=== PATIENT | male | born 1935 | race Caucasian/White ===

== ENCOUNTER → 2017-09-04 | Day surgery (SDC) | payer MEDICARE ==
[~2017-09-04] MED LIST: ACTOS45 MG PO; FENTANYL CITRATE/PF 100MCG/2 ML INJ ONE; GLIPIZIDE ER5 MG PO; INSULIN REGULAR, HUMAN 100 UNIT/1 ML 3ML VIAL ONE; METFORMIN HCL500 M2 PO; MIDAZOLAM HCL 2 MG/2 ML VIAL ONE; OR PHACO EYE KIT ONE; PREOP PHACO EYE KIT ONE
== END | disposition home or self-care (01) ==
LOC: OR 09:34
PROVIDERS: ATTEND Ophthalmology
DX: H25.11 Age-related nuclear cataract, right eye (principal); E11.9 Type 2 diabetes mellitus without complications; I10 Essential (primary) hypertension; G62.9 Polyneuropathy, unspecified; H91.90 Unspecified hearing loss, unspecified ear; R01.1 Cardiac murmur, unspecified; R05 Cough; Z79.84 Long term (current) use of oral hypoglycemic drugs
CPT/HCPCS: 36415; 66984; 82948; J2250; V2632

== ENCOUNTER → 2017-09-18 | Day surgery (SDC) | payer MEDICARE ==
[~2017-09-18] MED LIST changes: -FENTANYL CITRATE/PF 100MCG/2 ML INJ ONE; -INSULIN REGULAR, HUMAN 100 UNIT/1 ML 3ML VIAL ONE
== END | disposition home or self-care (01) ==
LOC: OR 10:11
PROVIDERS: ATTEND Ophthalmology
DX: H25.12 Age-related nuclear cataract, left eye (principal); I10 Essential (primary) hypertension; E11.9 Type 2 diabetes mellitus without complications; Z79.84 Long term (current) use of oral hypoglycemic drugs
CPT/HCPCS: 36415; 66984; 82948; J2250; V2632

== ENCOUNTER → 2018-12-11 | Day surgery (SDC) | payer MEDICARE ==
--- NOTE | 2018-12-10 14:27 | NUR ---
Dr. Amelie Graves notified of no labs ordered for patient. Dr. Amelie Graves ordered CBC, CMP, and PT/INR.
[2018-12-10 15:27] LABS: BASOPHILS # (AUTO) 0.1 (0.0-0.1); BASOPHILS % 0.5 % (0.0-1.0); EOSINOPHILS # (AUTO) 0.2 (0.0-0.4); EOSINOPHILS % 1.8 % (0.0-6.0); HEMATOCRIT 40.4 % (38.2-49.6); HEMOGLOBIN 13.7 g/dL (14.0-18.0); LYMPHOCYTES % 20.7 % (18.0-39.1); MEAN CORPUSCULAR HEMOGLOBIN 30.9 pg (28-32); MEAN CORPUSCULAR HGB CONC 33.9 g/dL (31-35); MONOCYTES % 9.7 % (4.4-11.3); NEUTROPHILS # (AUTO) 6.5 (2.1-6.9); PLATELET COUNT 222 x10e3/uL (140-360); RED BLOOD COUNT 4.44 x10e6/uL (4.3-5.7)
[2018-12-10 15:37] LABS: INR 1.17; PROTHROMBIN TIME 15.5 seconds (11.9-14.5)
[2018-12-10 15:47] LABS: ALANINE AMINOTRANSFERASE 8 IU/L (0-55); ALBUMIN/GLOBULIN RATIO 1.2 (0.8-2.0); ALKALINE PHOSPHATASE 53 IU/L (40-150); ANION GAP 12.1 mmol/L (8-16); BLOOD UREA NITROGEN 14 mg/dL (7-26); BUN/CREATININE RATIO 17 (6-25); CARBON DIOXIDE 27 mmol/L (22-29); CHLORIDE 97 mmol/L (98-107); CREATININE, SERUM 0.82 mg/dL (0.72-1.25); EST GLOMERULAR FILTRATION RATE > 60 ML/MIN (60-); GLUCOSE 161 mg/dL (74-118); POTASSIUM 4.1 mmol/L (3.5-5.1); SODIUM 132 mmol/L (136-145)
--- NOTE | 2018-12-10 16:07 | NUR ---
Dr. Amelie Graves notified of PT 15.5 and aspirin 81 mg po daily. no new orders at this time
[2018-12-11] VITALS (10 sets, daily range): BP systolic 144–175; BP diastolic 61–88
[~2018-12-11] VITALS: Ht 177.8 cm; Wt 88.5 kg
[~2018-12-11] MED LIST changes: +ASPIR 8181 MG PO; +BERBERINE PO; +CALCIUM PO; +CINNAMON500 MG PO; +COQ-10100 MG PO; +FENTANYL CITRATE/PF 100MCG/2 ML INJ ONE; +HYDRALAZINE HCL 20 MG/ML VIAL ONE; +IOPAMIDOL 370 MG/ML 200 ML INFUS..BTL INJ ONE; +LIDOCAINE HCL 2% LOCAL 20 ML VIAL ONE; +MAGNESIUM PO; +OMEGA 3 FISH O1 EACH PO; -OR PHACO EYE KIT ONE; -PREOP PHACO EYE KIT ONE; +PRESERVISION T1 EACH PO; +RED YEAST RICE600 MG PO; +SODIUM CHLORIDE 0.9% 1000ML 2,000 ML ONE; +THROAT DROPS6 MG PO; +TURMERIC1 GM PO; +VERAPAMIL HCL 2.5 MG/ML 2 ML VIAL ONE; +VITAMIN B COMP1 EACH PO; +VITAMIN B5 PO
--- OUTSIDE RECORDS SUMMARY | 2018-12-11 07:29 | XMS REPORT ---
Author Author [facility] Address Unknown Phone Unavailable Care Team Providers Care Component Inspector Name Role Phone Unavailable Unavailable Problems This patient has no known problems. Allergies, Adverse Reactions, Alerts This patient has no known allergies or adverse reactions. Medications This patient has no known medications.
--- NOTE | 2018-12-11 12:16 | NUR ---
1216 bedside report received from Teja CHATMAN. Alert oriented and appropriate, PERRLA, respirations even and unlabored to room air. Pulses x4 extremities equal and strong. Pedal pulses PT/DP 4 Cap fill brisk < 3 sec. Rt wrist Tr band intact No gross issues pain,pallor,pressure or dysrhythmia. Skin warm and dry integrity appears D/I. IV 20g to left hand at 100cchr. Presents healthy w/o s/s of infiltration or complaint. Abdomen soft and supple. pt offered toileting, denies need to urinate or defecate. No personal affects with patient. Family [place] [phone]. Pt and family verbalize understanding POC. Currently w/o complaint of pain or need. Hob elevated offered po intake spoke with pt and family. Dc plans discussed for f/o Dr Graves office in 2wks. vladimir/rn
--- NOTE | 2018-12-11 13:15 | NUR ---
1315pm RADIAL Compression removal: Initial Cuff volume 13 cc 1315p -2cc Removed No hematoma/bleeding noted with normal neurovascular function. 1330p -2cc Removed No hematoma/ bleeding noted with normal neurovascular function. 1345p -2cc Removed No hematoma/bleeding noted with normal neurovascular function. 1400p -2cc Removed No hematoma/ bleeding noted with normal neurovascular function. Air removal completed. 1415pm Stasis achieved sterile 2x2,Tegaderm, Coban dressing No hematoma, bleeding noted with normal neurovascular function. Wrist splint in place. Pt instructed on POC. Ds/Rn
--- NOTE | 2018-12-11 14:30 | NUR ---
1430 Pt meets DC criteria. Rt TR band site assessed for s/s of complication and presence of hematoma. warm, dry, no discolor, and pulses present. IV removed from left hand. Distal tip appears intact. VS WNL. Pt denies pain, sob, or need at this time. Family at [facility] at bedside review of discharge paperwork and follow up instructions. verbalized understanding. Pt to wheelchair and transported to front of hospital. Transferred to private vehicle under own strength w/o incident with DC paperwork in hand. - ds/rn
--- NOTE | 2019-01-24 19:54 | Operative Report ---
DATE OF PROCEDURE: 12/11/2018 SURGEON: Enrique Graves MD INDICATION FOR PROCEDURE: [id number] aortic stenosis, coronary artery disease, and carotid stenosis. PREPROCEDURE ASSESSMENT: The risks, benefits, and alternatives to the treatment were explained to the patient prior to the procedure. The patient was deemed to be an appropriate candidate for moderate sedation. Informed consent was obtained and documented in the medical record. MEDICATIONS: Please see nursing notes for medications administered during the procedure. PROCEDURES PERFORMED: 1. Coronary angiography, right radial approach. 2. Carotid angiography, right radial approach. PROCEDURE DETAILS: The patient was brought to the cardiac catheterization laboratory in a fasting state. Right wrist was prepped and draped in a sterile fashion. Access to the right radial artery was obtained using modified Seldinger technique. A 6-[place] Slender sheath was inserted without any difficulty. Coronary angiography was performed using Delia radial catheter to engage both the left and right coronary systems. Carotid angiography was performed using a JR4 catheter. Multiple orthogonal views were taken of each artery. All catheters were removed over a wire. There were no immediate complications. SIGNIFICANT FINDINGS: Left main large caliber vessel with luminal irregularities only. LAD, large caliber vessel goes to the apex, one significant diagonal branch. There is long tubular 40% to 50% stenosis in the proximal LAD with calcification. Left circumflex large dominant, left circumflex, one very large OM branch, and distal PDA and PL branches. Luminal irregularities only. No obstructive CAD. Small nondominant RCA with diffuse disease in the midportion about 80% to 90%. Carotid angiography: 80% stenosis of the left internal carotid artery and 40% stenosis of the right internal carotid artery, otherwise no significant disease in the left or right common carotid arteries or external carotid arteries. GRAFTS AND IMPLANTS: None. SPECIMENS REMOVED: None. ESTIMATED BLOOD LOSS: 10 mL. FINAL RECOMMENDATIONS: 1. Continue optimal medical therapy and risk factor control. 2. Follow up in clinic 2 weeks post procedure. Enrique Graves MD KVP/MODL /[id number]
== END | disposition home or self-care (01) ==
LOC: CATH LAB 07:26
PROVIDERS: ATTEND Internal Medicine
DX: I25.10 Atherosclerotic heart disease of native coronary artery without angina pectoris (principal); I35.0 Nonrheumatic aortic (valve) stenosis; I73.9 Peripheral vascular disease, unspecified; Z01.812 Encounter for preprocedural laboratory examination
CPT/HCPCS: 36222; 36415; 80053; 85025; 85610; 93454; C1769; C1887; J0360; J2001; J2250; J3010; J7030; Q9967

== ENCOUNTER 2020-05-09 16:56 | Inpatient (IN) | payer MEDICARE, OTHER ==
[~2020-05-09] VITALS: Ht 180.3 cm; Wt 93.4 kg
[~2020-05-09 16:56] MED LIST changes: -FENTANYL CITRATE/PF 100MCG/2 ML INJ ONE; -HYDRALAZINE HCL 20 MG/ML VIAL ONE; -IOPAMIDOL 370 MG/ML 200 ML INFUS..BTL INJ ONE; -LIDOCAINE HCL 2% LOCAL 20 ML VIAL ONE; -MIDAZOLAM HCL 2 MG/2 ML VIAL ONE; -SODIUM CHLORIDE 0.9% 1000ML 2,000 ML ONE; -VERAPAMIL HCL 2.5 MG/ML 2 ML VIAL ONE
[2020-05-09] MEDS ORDERED: SODIUM CHLORIDE FLUSH 10 ML SYR INJ PRN (19:00)
[2020-05-09] MEDS ORDERED: FUROSEMIDE INJ 10 MG/ML 4 ML VIAL IV ONE (19:30)
[2020-05-09] MEDS ORDERED: ONDANSETRON HCL INJ 2MG/ML 2ML 2 MG/ML VIAL IV PRN (20:00)
[2020-05-09] MEDS ORDERED: FAMOTIDINE 20 MG/2 ML VIAL IV SCH (20:00)
[2020-05-09] MEDS ORDERED: FUROSEMIDE INJ 10 MG/ML 4 ML VIAL ONE (20:09)
[2020-05-09] MEDS ORDERED: FAMOTIDINE 20 MG/2 ML VIAL IV ONE (20:15)
[2020-05-09] MEDS ORDERED: LIDOCAINE VISC 2% SOLN 15 ML UDC ONE (20:18)
[2020-05-09 22:14] VITALS: BP 146/78
[2020-05-09 22:33] VITALS: BP 164/87
[2020-05-10] VITALS (8 sets, daily range): BP systolic 116–155; BP diastolic 63–86
[2020-05-10 04:18] LABS: BASOPHILS % 0.6 % (0.0-1.0); EOSINOPHILS # (AUTO) 0.2 (0.0-0.4); EOSINOPHILS % 2.9 % (0.0-6.0); HEMATOCRIT 24.1 % (38.2-49.6); HEMOGLOBIN 7.9 g/dL (14.0-18.0); LYMPHOCYTES # (AUTO) 0.9 (1.0-3.2); LYMPHOCYTES % 17.5 % (18.0-39.1); MEAN CORPUSCULAR HGB CONC 32.8 g/dL (31-35); MEAN CORPUSCULAR VOLUME 76.3 fL (81-99); MONOCYTES # (AUTO) 0.7 (0.2-0.8); MONOCYTES % 12.7 % (4.4-11.3); NEUTROPHILS # (AUTO) 3.5 (2.1-6.9); NEUTROPHILS % 66.1 % (38.7-80.0); PLATELET COUNT 236 x10e3/uL (140-360); RED BLOOD COUNT 3.16 x10e6/uL (4.3-5.7); RED CELL DISTRIBUTION WIDTH 19.3 % (11.7-14.4)
[2020-05-10 04:37] LABS: CREATINE KINASE MB 0.9 ng/mL (0-5.0)
[2020-05-10 04:58] LABS: ALANINE AMINOTRANSFERASE 9 IU/L (0-55); ALBUMIN 3.1 g/dL (3.5-5.0); ALBUMIN/GLOBULIN RATIO 1.2 (0.8-2.0); ALKALINE PHOSPHATASE 126 IU/L (40-150); ANION GAP 12.5 mmol/L (8-16); BLOOD UREA NITROGEN 16 mg/dL (7-26); BUN/CREATININE RATIO 22 (6-25); CALCIUM 8.2 mg/dL (8.4-10.2); CARBON DIOXIDE 29 mmol/L (22-29); CHLORIDE 99 mmol/L (98-107); CHOL/HDL RATIO 3.3 (3.9-4.7); CHOLESTEROL 116 MD/DL (0-199); CREATININE, SERUM 0.73 mg/dL (0.72-1.25); EST GLOMERULAR FILTRATION RATE > 60 ML/MIN (60-); GLUCOSE 119 mg/dL (74-118); HDL CHOLESTEROL 35 MG/DL (40-60); LDL CHOLESTEROL 73 MG/DL (60-130); MAGNESIUM 1.2 MG/DL (1.3-2.1); PHOSPHORUS 3.5 MG/DL (2.3-4.7); POTASSIUM 3.5 mmol/L (3.5-5.1); SODIUM 137 mmol/L (136-145); TRIGLYCERIDES 40 MG/DL (0-149)
[2020-05-10] MEDS ORDERED: FUROSEMIDE INJ 10 MG/ML 4 ML VIAL IV ONE (08:00)
[2020-05-10] MEDS: CLOPIDOGREL BISULFATE 75 MG TAB PO SCH (08:31)
[2020-05-10] MEDS: FAMOTIDINE 20 MG/2 ML VIAL IV SCH ×2 (08:31→20:00)
[2020-05-10] MEDS ORDERED: PLAVIX75 MG PO (09:38)
[2020-05-10] MEDS ORDERED: COREG3.125 MG PO (09:42)
[2020-05-10] MEDS ORDERED: FLOMAX0.4 MG PO (09:42)
[2020-05-10] MEDS ORDERED: FINASTERIDE5 MG PO (09:42)
[2020-05-10] MEDS ORDERED: LOSARTAN POTASS25 MG PO (09:42)
[2020-05-10 13:03] LABS: CREATINE KINASE MB 0.6 ng/mL (0-5.0)
[2020-05-10 20:38] LABS: CREATINE KINASE MB 0.7 ng/mL (0-5.0)
[2020-05-10] MEDS: FUROSEMIDE INJ 10 MG/ML 4 ML VIAL IV SCH (21:00)
[2020-05-11] VITALS (8 sets, daily range): BP systolic 122–150; BP diastolic 58–78
[2020-05-11] MEDS: FAMOTIDINE 20 MG/2 ML VIAL IV SCH (09:00)
[2020-05-11] MEDS: GLIPIZIDE 5 MG TAB ER PO SCH (09:00)
[2020-05-11] MEDS: METFORMIN HCL 850 MG TAB PO SCH ×2 (09:00→16:31)
[2020-05-11] MEDS: CARVEDILOL 3.125 MG TAB PO SCH (09:00)
[2020-05-11] MEDS: CLOPIDOGREL BISULFATE 75 MG TAB PO SCH (09:53)
[2020-05-11] MEDS: ASPIRIN 81 MG CHEW TAB PO SCH (09:53)
[2020-05-11] MEDS: TAMSULOSIN HCL 0.4 MG CAP PO SCH (09:53)
[2020-05-11] MEDS: FINASTERIDE 5 MG TAB PO SCH (09:53)
[2020-05-11] MEDS: FUROSEMIDE INJ 10 MG/ML 4 ML VIAL IV SCH ×2 (09:53→20:37)
[2020-05-12] VITALS (7 sets, daily range): BP systolic 131–139; BP diastolic 58–76
[2020-05-12] MEDS: CARVEDILOL 3.125 MG TAB PO SCH (08:00)
[2020-05-12] MEDS: CLOPIDOGREL BISULFATE 75 MG TAB PO SCH (09:00)
[2020-05-12] MEDS: TAMSULOSIN HCL 0.4 MG CAP PO SCH (09:17)
[2020-05-12] MEDS: METFORMIN HCL 850 MG TAB PO SCH ×2 (09:17→17:19)
[2020-05-12] MEDS: GLIPIZIDE 5 MG TAB ER PO SCH (09:17)
[2020-05-12] MEDS: ASPIRIN 81 MG CHEW TAB PO SCH (09:17)
[2020-05-12] MEDS: FINASTERIDE 5 MG TAB PO SCH (09:18)
[2020-05-12] MEDS: FUROSEMIDE INJ 10 MG/ML 4 ML VIAL IV SCH ×2 (09:24→20:47)
[2020-05-12 14:41] LABS: BASOPHILS % 0.5 % (0.0-1.0); EOSINOPHILS # (AUTO) 0.2 (0.0-0.4); EOSINOPHILS % 2.1 % (0.0-6.0); HEMATOCRIT 28.8 % (38.2-49.6); HEMOGLOBIN 9.3 g/dL (14.0-18.0); LYMPHOCYTES # (AUTO) 0.9 (1.0-3.2); MEAN CORPUSCULAR HEMOGLOBIN 25.5 pg (28-32); MEAN CORPUSCULAR HGB CONC 32.3 g/dL (31-35); MEAN CORPUSCULAR VOLUME 79.1 fL (81-99); MONOCYTES # (AUTO) 1.2 (0.2-0.8); MONOCYTES % 13.9 % (4.4-11.3); NEUTROPHILS # (AUTO) 6.1 (2.1-6.9); NEUTROPHILS % 72.3 % (38.7-80.0); PLATELET COUNT 271 x10e3/uL (140-360); RED BLOOD COUNT 3.64 x10e6/uL (4.3-5.7); RED CELL DISTRIBUTION WIDTH 19.8 % (11.7-14.4)
[2020-05-12 14:58] LABS: ANION GAP 17.8 mmol/L (8-16); BLOOD UREA NITROGEN 13 mg/dL (7-26); BUN/CREATININE RATIO 17 (6-25); CALCIUM 8.4 mg/dL (8.4-10.2); CARBON DIOXIDE 26 mmol/L (22-29); CHLORIDE 95 mmol/L (98-107); CREATININE, SERUM 0.77 mg/dL (0.72-1.25); EST GLOMERULAR FILTRATION RATE > 60 ML/MIN (60-); GLUCOSE 165 mg/dL (74-118); POTASSIUM 3.8 mmol/L (3.5-5.1); SODIUM 135 mmol/L (136-145)
[2020-05-13] VITALS: BP 137/70
[2020-05-13 04:00] VITALS: BP 131/67
[2020-05-13 06:04] LABS: BASOPHILS % 0.5 % (0.0-1.0); EOSINOPHILS # (AUTO) 0.2 (0.0-0.4); EOSINOPHILS % 2.9 % (0.0-6.0); HEMATOCRIT 25.5 % (38.2-49.6); HEMOGLOBIN 8.4 g/dL (14.0-18.0); LYMPHOCYTES # (AUTO) 0.9 (1.0-3.2); LYMPHOCYTES % 13.2 % (18.0-39.1); MEAN CORPUSCULAR HEMOGLOBIN 25.2 pg (28-32); MEAN CORPUSCULAR HGB CONC 32.9 g/dL (31-35); MEAN CORPUSCULAR VOLUME 76.6 fL (81-99); MONOCYTES % 15.2 % (4.4-11.3); NEUTROPHILS # (AUTO) 4.5 (2.1-6.9); NEUTROPHILS % 67.9 % (38.7-80.0); PLATELET COUNT 263 x10e3/uL (140-360); RED BLOOD COUNT 3.33 x10e6/uL (4.3-5.7); RED CELL DISTRIBUTION WIDTH 19.6 % (11.7-14.4)
[2020-05-13 06:46] LABS: ANION GAP 14.4 mmol/L (8-16); BLOOD UREA NITROGEN 13 mg/dL (7-26); BUN/CREATININE RATIO 20 (6-25); CARBON DIOXIDE 29 mmol/L (22-29); CHLORIDE 94 mmol/L (98-107); CREATININE, SERUM 0.65 mg/dL (0.72-1.25); EST GLOMERULAR FILTRATION RATE > 60 ML/MIN (60-); GLUCOSE 123 mg/dL (74-118); POTASSIUM 3.4 mmol/L (3.5-5.1); SODIUM 134 mmol/L (136-145)
[2020-05-13 08:09] VITALS: BP 136/70
[2020-05-13 08:17] VITALS: BP 136/70
[2020-05-13] MEDS: CARVEDILOL 3.125 MG TAB PO SCH (08:29)
[2020-05-13] MEDS: FUROSEMIDE INJ 10 MG/ML 4 ML VIAL IV SCH (08:30)
[2020-05-13] MEDS: TAMSULOSIN HCL 0.4 MG CAP PO SCH (08:30)
[2020-05-13] MEDS: METFORMIN HCL 850 MG TAB PO SCH (08:30)
[2020-05-13] MEDS: FINASTERIDE 5 MG TAB PO SCH (08:30)
[2020-05-13] MEDS: GLIPIZIDE 5 MG TAB ER PO SCH (08:30)
[2020-05-13] MEDS: ASPIRIN 81 MG CHEW TAB PO SCH (08:30)
[2020-05-13 11:54] VITALS: BP 124/67
[2020-05-13] MEDS ORDERED: ONDANSETRON HCL 4 MG ORAL DISINTEGRATING TAB PO PRN (12:45)
== END 2020-05-13 13:56 | disposition home or self-care (01) | DRG 293 ==
LOC: FSED 17:25 → ERHOLD 20:18 → MED/SURG 21:57 → MED/SURG3 05-10 20:43
PROVIDERS: ADMIT Internal Medicine; ATTEND Internal Medicine
DX: I11.0 Hypertensive heart disease with heart failure (principal); I35.0 Nonrheumatic aortic (valve) stenosis; I50.23 Acute on chronic systolic (congestive) heart failure; R33.9 Retention of urine, unspecified; D64.9 Anemia, unspecified; N40.1 Benign prostatic hyperplasia with lower urinary tract symptoms; R35.1 Nocturia; Z20.822 Contact with and (suspected) exposure to COVID-19; S00.03XA Contusion of scalp, initial encounter; W01.10XA Fall on same level from slipping, tripping and stumbling with subsequent striking against unspecified object, initial encounter
CPT/HCPCS: 36415; 51700; 70450; 71045; 71250; 72125; 80048; 80053; 80061; 82550; 82553; 82948; 83735; 84100; 84484; 85025; 93005; 93306; 94760; 96372; 99284; J1940; U0002

== ENCOUNTER → 2020-05-19 | Outpatient (CLI) | payer OTHER ==
[~2020-05-19] MED LIST changes: +COREG3.125 MG PO; +FINASTERIDE5 MG PO; +FLOMAX0.4 MG PO; +LOSARTAN POTASS25 MG PO; +PLAVIX75 MG PO
[2020-05-19 08:13] LABS: HEMOGLOBIN 8.9 g/dL (14.0-18.0)
[2020-05-19 08:26] LABS: INR 1.42; PROTHROMBIN TIME 18.3 seconds (11.9-14.5)
[2020-05-19 08:27] LABS: PARTIAL THROMBOPLASTIN TIME 33.9 seconds (23.8-35.5)
[2020-05-19 10:50] LABS: BODY FLUID TYPE PLEURAL
[2020-05-19 10:51] LABS: BODY FLUID APPEARANCE CLOUDY; BODY FLUID COLOR YELLOW
[2020-05-19 10:53] LABS: RBC,BODY FLUID 87 cells/uL; WBC,BODY FLUID 444 cells/uL
[2020-05-19 10:56] LABS: NEUTROPHILS,BODY FLUID 1 %
[2020-05-19 10:57] LABS: LYMPHOCYTES,BODY FLUID 79 %; MONO/MACROPHG,BODY FLUID 10 %; OTHER CELLS,BODY FLUID 10 %
== END ==
LOC: US 07:44
PROVIDERS: ATTEND Internal Medicine
DX: J90 Pleural effusion, not elsewhere classified (principal)
CPT/HCPCS: 32555; 36415; 71045; 83615; 84157; 85014; 85049; 85610; 85730; 87070; 87205; 88112; 88305; 89051

== ENCOUNTER 2020-06-30 08:30 | Inpatient (IN) | payer MEDICARE, OTHER ==
[2020-06-28 12:59] LABS: BASOPHILS % 0.7 % (0.0-1.0); EOSINOPHILS # (AUTO) 0.2 (0.0-0.4); EOSINOPHILS % 3.2 % (0.0-6.0); HEMATOCRIT 31.5 % (38.2-49.6); LYMPHOCYTES # (AUTO) 0.7 (1.0-3.2); LYMPHOCYTES % 12.2 % (18.0-39.1); MEAN CORPUSCULAR HEMOGLOBIN 25.7 pg (28-32); MEAN CORPUSCULAR HGB CONC 31.7 g/dL (31-35); MONOCYTES # (AUTO) 0.8 (0.2-0.8); MONOCYTES % 13.2 % (4.4-11.3); NEUTROPHILS # (AUTO) 4.2 (2.1-6.9); NEUTROPHILS % 70.4 % (38.7-80.0); PLATELET COUNT 296 x10e3/uL (140-360); RED BLOOD COUNT 3.89 x10e6/uL (4.3-5.7); RED CELL DISTRIBUTION WIDTH 19.3 % (11.7-14.4)
[2020-06-28 13:46] LABS: ANION GAP 13.3 mmol/L (8-16); BLOOD UREA NITROGEN 14 mg/dL (7-26); BUN/CREATININE RATIO 17 (6-25); CALCIUM 8.8 mg/dL (8.4-10.2); CARBON DIOXIDE 25 mmol/L (22-29); CHLORIDE 101 mmol/L (98-107); CREATININE, SERUM 0.81 mg/dL (0.72-1.25); EST GLOMERULAR FILTRATION RATE > 60 ML/MIN (60-); GLUCOSE 144 mg/dL (74-118); POTASSIUM 5.3 mmol/L (3.5-5.1); SODIUM 134 mmol/L (136-145)
[~2020-06-30] VITALS: Ht 177.8 cm; Wt 88.9 kg
[~2020-06-30 08:30] MED LIST changes: +BACTRIM DS TAB1 EACH PO; +FUROSEMIDE40 MG PO
[2020-06-30] MEDS ORDERED: LOSARTAN POTASSIUM 25 MG TAB PO PRN (09:00)
[2020-06-30] MEDS ORDERED: GENTAMICIN 80MG/NS 100 ML 100 ML IV ONE ×2 (09:33→10:04)
[2020-06-30] MEDS ORDERED: CEFTRIAXONE SOD 1 GM VIAL ONE (09:33)
[2020-06-30] MEDS ORDERED: SODIUM CHLORIDE 0.9% 50ML 50 ML ONE (09:33)
[2020-06-30] MEDS ORDERED: B&O 60MG R/S 60 MG SUPP PR ONE (09:43)
[2020-06-30] MEDS ORDERED: IOPAMIDOL 300MG/ML 50ML INFUS..BTL IV ONE (09:44)
[2020-06-30] MEDS ORDERED: NITRIC ACID1 ML PO (09:44)
[2020-06-30] MEDS ORDERED: B&O 60MG R/S 60 MG SUPP PR PRN (11:15)
[2020-06-30] MEDS ORDERED: ACETAMINOPHEN/CODEINE 300MG - 30MG TAB PO PRN (11:15)
[2020-06-30] MEDS ORDERED: DIPHENHYDRAMINE HCL 25 MG CAP PO PRN (11:15)
[2020-06-30] MEDS ORDERED: ONDANSETRON HCL INJ 2MG/ML 2ML 2 MG/ML VIAL IV PRN (11:15)
[2020-06-30] MEDS ORDERED: CEFTRIAXONE SOD 1 GM/50 ML BAG IV SCH (11:15)
[2020-06-30] MEDS ORDERED: EPHEDRINE SULFATE INJ 50 MG/ML VIAL ONE (11:27)
[2020-06-30 12:30] VITALS: BP 141/77
[2020-06-30] MEDS ORDERED: ONDANSETRON HCL INJ 2MG/ML 2ML 2 MG/ML VIAL ONE (12:47)
[2020-06-30] MEDS ORDERED: PROPOFOL IV EMULSION 10 MG/ML 20 ML VIAL ONE (12:47)
[2020-06-30] MEDS ORDERED: LIDOCAINE HCL 2% LOCAL INJ 5 ML SDV VIAL INJ ONE (12:47)
[2020-06-30] MEDS ORDERED: SEVOFLURANE INHAL SOLN 250 ML PEN BTL ONE (12:47)
[2020-06-30 12:50] VITALS: BP 141/77
[2020-06-30] MEDS ORDERED: FENTANYL CITRATE/PF 100MCG/2 ML INJ ONE (12:55)
[2020-06-30 13:00] VITALS: BP 141/77
[2020-06-30 13:53] LABS: BASOPHILS # (AUTO) 0.1 (0.0-0.1); BASOPHILS % 1.1 % (0.0-1.0); EOSINOPHILS # (AUTO) 0.2 (0.0-0.4); EOSINOPHILS % 4.1 % (0.0-6.0); HEMATOCRIT 32.4 % (38.2-49.6); LYMPHOCYTES # (AUTO) 0.7 (1.0-3.2); LYMPHOCYTES % 15.7 % (18.0-39.1); MEAN CORPUSCULAR HEMOGLOBIN 25.1 pg (28-32); MEAN CORPUSCULAR HGB CONC 30.9 g/dL (31-35); MEAN CORPUSCULAR VOLUME 81.4 fL (81-99); MONOCYTES # (AUTO) 0.7 (0.2-0.8); MONOCYTES % 14.2 % (4.4-11.3); NEUTROPHILS % 64.5 % (38.7-80.0); PLATELET COUNT 290 x10e3/uL (140-360); RED BLOOD COUNT 3.98 x10e6/uL (4.3-5.7)
[2020-06-30] MEDS: SODIUM CHLORIDE 0.9% 1000ML 1,000 ML IV SCH (14:00)
[2020-06-30 14:13] LABS: ANION GAP 14.4 mmol/L (8-16); BLOOD UREA NITROGEN 12 mg/dL (7-26); BUN/CREATININE RATIO 16 (6-25); CALCIUM 8.3 mg/dL (8.4-10.2); CARBON DIOXIDE 23 mmol/L (22-29); CHLORIDE 100 mmol/L (98-107); CREATININE, SERUM 0.77 mg/dL (0.72-1.25); EST GLOMERULAR FILTRATION RATE > 60 ML/MIN (60-); GLUCOSE 153 mg/dL (74-118); POTASSIUM 4.4 mmol/L (3.5-5.1); SODIUM 133 mmol/L (136-145)
[2020-06-30 15:44] VITALS: BP 158/69
[2020-06-30] MEDS: DOCUSATE SODIUM 100 MG CAP PO SCH (16:24)
[2020-06-30 20:20] VITALS: BP 135/71
[2020-06-30 20:30] VITALS: BP 135/71
[2020-07-01] VITALS (8 sets, daily range): BP systolic 90–141; BP diastolic 58–96
[2020-07-01] MEDS: SODIUM CHLORIDE 0.9% 1000ML 1,000 ML IV SCH ×2 (03:42→13:55)
[2020-07-01 05:50] LABS: BASOPHILS # (AUTO) 0.1 (0.0-0.1); BASOPHILS % 0.7 % (0.0-1.0); EOSINOPHILS # (AUTO) 0.2 (0.0-0.4); HEMATOCRIT 29.2 % (38.2-49.6); HEMOGLOBIN 9.3 g/dL (14.0-18.0); LYMPHOCYTES # (AUTO) 0.7 (1.0-3.2); LYMPHOCYTES % 8.9 % (18.0-39.1); MEAN CORPUSCULAR HEMOGLOBIN 25.8 pg (28-32); MEAN CORPUSCULAR HGB CONC 31.8 g/dL (31-35); MEAN CORPUSCULAR VOLUME 80.9 fL (81-99); MONOCYTES # (AUTO) 0.9 (0.2-0.8); MONOCYTES % 11.3 % (4.4-11.3); NEUTROPHILS # (AUTO) 5.8 (2.1-6.9); NEUTROPHILS % 76.8 % (38.7-80.0); PLATELET COUNT 258 x10e3/uL (140-360); RED BLOOD COUNT 3.61 x10e6/uL (4.3-5.7); RED CELL DISTRIBUTION WIDTH 18.6 % (11.7-14.4)
[2020-07-01 06:07] LABS: ANION GAP 13.4 mmol/L (8-16); BLOOD UREA NITROGEN 14 mg/dL (7-26); BUN/CREATININE RATIO 18 (6-25); CALCIUM 8.3 mg/dL (8.4-10.2); CARBON DIOXIDE 25 mmol/L (22-29); CHLORIDE 101 mmol/L (98-107); EST GLOMERULAR FILTRATION RATE > 60 ML/MIN (60-); GLUCOSE 185 mg/dL (74-118); POTASSIUM 4.4 mmol/L (3.5-5.1); SODIUM 135 mmol/L (136-145)
[2020-07-01] MEDS: DOCUSATE SODIUM 100 MG CAP PO SCH ×2 (08:42→17:19)
[2020-07-01] MEDS: CEFTRIAXONE SOD 1 GM in SODIUM CHLORIDE 0.9% 50ML 50 ML IV SCH (08:42)
[2020-07-01] MEDS: FINASTERIDE 5 MG TAB PO SCH (08:43)
[2020-07-01] MEDS: METFORMIN HCL 500 MG TAB CR PO SCH ×2 (08:43→17:00)
[2020-07-01] MEDS: TAMSULOSIN HCL 0.4 MG CAP PO SCH (08:43)
[2020-07-01] MEDS: GLIPIZIDE 5 MG TAB ER PO SCH (08:43)
[2020-07-01] MEDS ORDERED: ASPIRIN 81 MG CHEW TAB PO SCH (09:00)
[2020-07-01] MEDS ORDERED: FUROSEMIDE 40 MG TAB PO SCH (09:00)
[2020-07-01] MEDS ORDERED: CLOPIDOGREL BISULFATE 75 MG TAB PO SCH (09:00)
[2020-07-01] MEDS ORDERED: CARVEDILOL 3.125 MG TAB PO SCH (09:00)
[2020-07-01] MEDS: POTASSIUM CHLORIDE 10MEQ EA PO SCH ×2 (10:28→17:19)
[2020-07-01] MEDS: FUROSEMIDE INJ 10 MG/ML 4 ML VIAL IV SCH ×2 (10:28→20:38)
[2020-07-01] MEDS ORDERED: ONDANSETRON HCL 4 MG ORAL DISINTEGRATING TAB PO PRN (10:30)
[2020-07-01] MEDS: CARVEDILOL 3.125 MG TAB PO SCH (17:19)
[2020-07-02] VITALS (8 sets, daily range): BP systolic 112–152; BP diastolic 65–85
[2020-07-02 05:05] LABS: BASOPHILS % 0.4 % (0.0-1.0); EOSINOPHILS # (AUTO) 0.3 (0.0-0.4); EOSINOPHILS % 3.7 % (0.0-6.0); HEMATOCRIT 27.3 % (38.2-49.6); HEMOGLOBIN 8.9 g/dL (14.0-18.0); LYMPHOCYTES # (AUTO) 0.8 (1.0-3.2); MEAN CORPUSCULAR HEMOGLOBIN 25.6 pg (28-32); MEAN CORPUSCULAR HGB CONC 32.6 g/dL (31-35); MEAN CORPUSCULAR VOLUME 78.7 fL (81-99); MONOCYTES # (AUTO) 0.9 (0.2-0.8); MONOCYTES % 13.7 % (4.4-11.3); NEUTROPHILS # (AUTO) 4.9 (2.1-6.9); NEUTROPHILS % 71.2 % (38.7-80.0); PLATELET COUNT 268 x10e3/uL (140-360); RED BLOOD COUNT 3.47 x10e6/uL (4.3-5.7); RED CELL DISTRIBUTION WIDTH 18.4 % (11.7-14.4)
[2020-07-02 05:25] LABS: ANION GAP 13.8 mmol/L (8-16); BLOOD UREA NITROGEN 11 mg/dL (7-26); BUN/CREATININE RATIO 15 (6-25); CALCIUM 8.2 mg/dL (8.4-10.2); CARBON DIOXIDE 25 mmol/L (22-29); CHLORIDE 100 mmol/L (98-107); CREATININE, SERUM 0.74 mg/dL (0.72-1.25); EST GLOMERULAR FILTRATION RATE > 60 ML/MIN (60-); GLUCOSE 140 mg/dL (74-118); POTASSIUM 3.8 mmol/L (3.5-5.1); SODIUM 135 mmol/L (136-145)
[2020-07-02] MEDS: SODIUM CHLORIDE 0.9% 1000ML 1,000 ML IV SCH ×2 (05:44→16:35)
[2020-07-02] MEDS: CEFTRIAXONE SOD 1 GM in SODIUM CHLORIDE 0.9% 50ML 50 ML IV SCH (09:00)
[2020-07-02] MEDS: FUROSEMIDE INJ 10 MG/ML 4 ML VIAL IV SCH ×2 (12:00→21:07)
[2020-07-02] MEDS: METFORMIN HCL 500 MG TAB CR PO SCH (12:00)
[2020-07-02] MEDS: DOCUSATE SODIUM 100 MG CAP PO SCH ×2 (12:00→21:00)
[2020-07-02] MEDS: POTASSIUM CHLORIDE 10MEQ EA PO SCH ×2 (12:00→21:08)
[2020-07-02] MEDS: CARVEDILOL 3.125 MG TAB PO SCH ×2 (12:00→21:07)
[2020-07-02] MEDS: TAMSULOSIN HCL 0.4 MG CAP PO SCH (12:00)
[2020-07-02] MEDS: FINASTERIDE 5 MG TAB PO SCH (12:00)
[2020-07-02] MEDS: GLIPIZIDE 5 MG TAB ER PO SCH (12:00)
[2020-07-02] MEDS: LOSARTAN POTASSIUM 25 MG TAB PO SCH (17:15)
[2020-07-02] MEDS: METFORMIN HCL 500 MG TAB PO SCH (18:00)
[2020-07-03] VITALS (7 sets, daily range): BP systolic 104–154; BP diastolic 56–88
[2020-07-03] MEDS: SODIUM CHLORIDE 0.9% 1000ML 1,000 ML IV SCH ×2 (05:00→21:05)
[2020-07-03] MEDS: FUROSEMIDE INJ 10 MG/ML 4 ML VIAL IV SCH ×2 (08:11→21:05)
[2020-07-03] MEDS: METFORMIN HCL 850 MG TAB PO SCH (08:11)
[2020-07-03] MEDS: DOCUSATE SODIUM 100 MG CAP PO SCH ×2 (08:12→21:05)
[2020-07-03] MEDS: TAMSULOSIN HCL 0.4 MG CAP PO SCH (08:12)
[2020-07-03] MEDS: CARVEDILOL 3.125 MG TAB PO SCH ×2 (08:12→21:05)
[2020-07-03] MEDS: CEFTRIAXONE SOD 1 GM in SODIUM CHLORIDE 0.9% 50ML 50 ML IV SCH (08:12)
[2020-07-03] MEDS: FINASTERIDE 5 MG TAB PO SCH (08:12)
[2020-07-03] MEDS: LOSARTAN POTASSIUM 25 MG TAB PO SCH (08:12)
[2020-07-03] MEDS: POTASSIUM CHLORIDE 10MEQ EA PO SCH ×2 (08:13→21:06)
[2020-07-03] MEDS: GLIPIZIDE 5 MG TAB ER PO SCH (08:14)
[2020-07-03] MEDS ORDERED: METFORMIN HCL 500 MG TAB CR PO SCH (09:00)
[2020-07-03] MEDS: METFORMIN HCL 500 MG TAB PO SCH (16:21)
[2020-07-04] VITALS (8 sets, daily range): BP systolic 127–153; BP diastolic 56–88
[2020-07-04] MEDS: CEFTRIAXONE SOD 1 GM in SODIUM CHLORIDE 0.9% 50ML 50 ML IV SCH (08:14)
[2020-07-04] MEDS: GLIPIZIDE 5 MG TAB ER PO SCH (08:14)
[2020-07-04] MEDS: FUROSEMIDE INJ 10 MG/ML 4 ML VIAL IV SCH ×2 (08:14→20:58)
[2020-07-04] MEDS: METFORMIN HCL 850 MG TAB PO SCH (08:14)
[2020-07-04] MEDS: DOCUSATE SODIUM 100 MG CAP PO SCH ×2 (08:14→20:58)
[2020-07-04] MEDS: LOSARTAN POTASSIUM 25 MG TAB PO SCH (08:15)
[2020-07-04] MEDS: TAMSULOSIN HCL 0.4 MG CAP PO SCH (08:15)
[2020-07-04] MEDS: CARVEDILOL 3.125 MG TAB PO SCH ×2 (08:15→20:58)
[2020-07-04] MEDS: FINASTERIDE 5 MG TAB PO SCH (08:16)
[2020-07-04] MEDS: POTASSIUM CHLORIDE 10MEQ EA PO SCH ×2 (08:17→20:59)
[2020-07-04] MEDS: METFORMIN HCL 500 MG TAB PO SCH (18:10)
[2020-07-04] MEDS: SODIUM CHLORIDE 0.9% 1000ML 1,000 ML IV SCH (18:10)
[2020-07-05] VITALS: BP 93/54
[2020-07-05 04:00] VITALS: BP 143/75
[2020-07-05 07:25] VITALS: BP 135/72
[2020-07-05] MEDS: SODIUM CHLORIDE 0.9% 1000ML 1,000 ML IV SCH (07:25)
[2020-07-05 08:01] VITALS: BP 135/72
[2020-07-05] MEDS ORDERED: CLOPIDOGREL BISULFATE 75 MG TAB PO SCH (09:00)
[2020-07-05] MEDS ORDERED: ASPIRIN 81 MG CHEW TAB PO SCH (09:00)
[2020-07-05] MEDS: METFORMIN HCL 850 MG TAB PO SCH (09:48)
[2020-07-05] MEDS: GLIPIZIDE 5 MG TAB ER PO SCH (09:48)
[2020-07-05] MEDS: FUROSEMIDE INJ 10 MG/ML 4 ML VIAL IV SCH (09:49)
[2020-07-05] MEDS: CEFTRIAXONE SOD 1 GM in SODIUM CHLORIDE 0.9% 50ML 50 ML IV SCH (09:49)
[2020-07-05] MEDS: DOCUSATE SODIUM 100 MG CAP PO SCH (09:50)
[2020-07-05] MEDS: TAMSULOSIN HCL 0.4 MG CAP PO SCH (09:51)
[2020-07-05] MEDS: LOSARTAN POTASSIUM 25 MG TAB PO SCH (09:51)
[2020-07-05] MEDS: CARVEDILOL 3.125 MG TAB PO SCH (09:51)
[2020-07-05] MEDS: POTASSIUM CHLORIDE 10MEQ EA PO SCH (09:52)
[2020-07-05] MEDS: FINASTERIDE 5 MG TAB PO SCH (09:52)
[2020-07-05] MEDS ORDERED: TYLENOL # 31 EA PO (11:01)
[2020-07-05] MEDS ORDERED: CEFTIN PO (11:02)
[2020-07-05 11:34] VITALS: BP 117/54
== END 2020-07-05 12:30 | disposition home or self-care (01) | DRG 713 ==
LOC: OR 08:30 → PACU V 11:06 → MED/SURG 12:43
PROVIDERS: ADMIT Internal Medicine; ATTEND Internal Medicine
PROC: 0T788ZZ Dilation of Bilateral Ureters, Via Natural or Artificial Opening Endoscopic (ICD-10-PCS; 2020-06-30)
PROC: BT14ZZZ Fluoroscopy of Kidneys, Ureters and Bladder (ICD-10-PCS; principal; 2020-06-30 10:30)
PROC: 0VB08ZZ Excision of Prostate, Via Natural or Artificial Opening Endoscopic (ICD-10-PCS; 2020-06-30 10:30)
DX: N40.1 Benign prostatic hyperplasia with lower urinary tract symptoms (principal); I50.23 Acute on chronic systolic (congestive) heart failure; N13.8 Other obstructive and reflux uropathy; N39.0 Urinary tract infection, site not specified; I25.10 Atherosclerotic heart disease of native coronary artery without angina pectoris; I11.0 Hypertensive heart disease with heart failure; E11.9 Type 2 diabetes mellitus without complications; I65.29 Occlusion and stenosis of unspecified carotid artery; N32.81 Overactive bladder; R97.20 Elevated prostate specific antigen [PSA]; Z86.73 Personal history of transient ischemic attack (TIA), and cerebral infarction without residual deficits; R39.14 Feeling of incomplete bladder emptying; R35.1 Nocturia; Z20.822 Contact with and (suspected) exposure to COVID-19
CPT/HCPCS: 36415; 71045; 74420; 80048; 82948; 83735; 83880; 84132; 85025; 93306; 97139; C1758; J0696; J1580; J1940; J2001; J2405; J3010; J7030; U0002

== ENCOUNTER 2022-05-02 11:16 | Inpatient (IN) | payer MEDICARE, OTHER ==
[~2022-05-02] VITALS: Ht 177.8 cm; Wt 83.0 kg
[~2022-05-02 11:16] MED LIST changes: +CEFTIN PO; +NITRIC ACID1 ML PO; +TYLENOL # 31 EA PO
[2022-05-02] MEDS ORDERED: SODIUM CHLORIDE 0.9% 1000ML 1,000 ML IV ONE (11:45)
[2022-05-02 11:58] LABS: BASOPHILS % 0.3 % (0.0-1.0); EOSINOPHILS % 0.1 % (0.0-6.0); HEMOGLOBIN 10.5 g/dL (14.0-18.0); LYMPHOCYTES # (AUTO) 1.7 (1.0-3.2); LYMPHOCYTES % 11.6 % (18.0-39.1); MEAN CORPUSCULAR HEMOGLOBIN 29.2 pg (28-32); MEAN CORPUSCULAR HGB CONC 30.9 g/dL (31-35); MEAN CORPUSCULAR VOLUME 94.4 fL (81-99); MONOCYTES # (AUTO) 0.8 (0.2-0.8); NEUTROPHILS # (AUTO) 12.3 (2.1-6.9); NEUTROPHILS % 82.3 % (38.7-80.0); PLATELET COUNT 298 x10e3/uL (140-360); RED CELL DISTRIBUTION WIDTH 14.3 % (11.7-14.4)
[2022-05-02 12:03] LABS: INR 1.55; PARTIAL THROMBOPLASTIN TIME 38.3 seconds (23.8-35.5); PROTHROMBIN TIME 18.8 seconds (11.9-14.5)
[2022-05-02 12:13] LABS: ALBUMIN/GLOBULIN RATIO 0.8 (0.8-2.0); ANION GAP 16.5 mmol/L (8-16); CALCIUM 8.9 mg/dL (8.4-10.2); CREATININE, SERUM 1.12 mg/dL (0.72-1.25); POTASSIUM 4.5 mmol/L (3.5-5.1)
[2022-05-02 12:18] LABS: CLARITY,URINE CLEAR (CLEAR); COLOR,URINE YELLOW (YELLOW); KETONES,URINE 1+ (NEGATIVE); LEUKOCYTE ESTERASE ,URINE NEGATIVE (NEGATIVE); NITRITE,URINE NEGATIVE (NEGATIVE); PROTEIN,URINE DIPSTICK 1+ (NEGATIVE); URINE UROBILINOGEN 0.2 mg/dL (0.2 - 1)
[2022-05-02 12:20] LABS: BACTERIA,URINE FEW /HPF; EPITHELIAL CELLS,URINE RARE /LPF; RBC,URINE 0-5 /HPF (0-5)
[2022-05-02] MEDS ORDERED: FUROSEMIDE INJ 10 MG/ML 2 ML VIAL IV ONE (13:00)
[2022-05-02] MEDS ORDERED: ONDANSETRON HCL INJ 2MG/ML 2ML 2 MG/ML VIAL IV PRN (13:15)
[2022-05-02] MEDS ORDERED: SODIUM CHLORIDE FLUSH 10 ML SYR INJ PRN (13:15)
[2022-05-02] MEDS ORDERED: DEXTROSE 50% SYRINGE 50 ML IV PRN (13:30)
[2022-05-02 16:23] VITALS: BP 120/51
[2022-05-02] MEDS: INSULIN REGULAR, HUMAN 100 UNIT/1 ML SQ SCH ×2 (16:30→22:00)
[2022-05-02 16:37] LABS: CREATINE KINASE MB 4.8 ng/mL (0-5.0)
[2022-05-02 17:23] VITALS: BP 120/51
[2022-05-02 17:45] VITALS: BP 120/51
[2022-05-02 19:21] VITALS: BP 105/44
[2022-05-02] MEDS ORDERED: FLOMAX0.4 MG PO (19:44)
[2022-05-02] MEDS ORDERED: LEVOTHYROXINE50 MCG PO (19:44)
[2022-05-02] MEDS ORDERED: JARDIANCE10 MG PO (19:44)
[2022-05-02] MEDS ORDERED: LANTUS 3ML100 UNITS/ SQ (19:44)
[2022-05-02] MEDS ORDERED: RANEXA500 MG PO (19:44)
[2022-05-02] MEDS ORDERED: METOPROLOL SUCC25 MG PO (19:44)
[2022-05-02 20:00] VITALS: BP 105/44
[2022-05-02 22:24] LABS: CREATINE KINASE MB 2.2 ng/mL (0-5.0)
[2022-05-03] VITALS (8 sets, daily range): BP systolic 95–135; BP diastolic 48–93
[2022-05-03] MEDS ORDERED: DEXTROSE 50% SYRINGE 50 ML IV PRN (08:15)
[2022-05-03] MEDS ORDERED: LEVOTHYROXINE SODIUM 50 MCG TAB PO SCH (08:15)
[2022-05-03] MEDS: ASPIRIN 81 MG CHEW TAB PO SCH (09:25)
[2022-05-03] MEDS: RANOLAZINE 500 MG TABSR PO SCH ×2 (09:25→20:15)
[2022-05-03] MEDS: LOSARTAN POTASSIUM 25 MG TAB PO SCH (09:25)
[2022-05-03] MEDS: METOPROLOL SUCCINATE 25 MG TAB XL PO SCH (09:26)
[2022-05-03] MEDS: FINASTERIDE 5 MG TAB PO SCH (09:26)
[2022-05-03] MEDS: EMPAGLIFLOZIN 10 MG TABLET PO SCH (10:10)
[2022-05-03] MEDS: INSULIN LISPRO 100 UNIT/1 ML 3ML VIAL SQ SCH ×3 (12:20→22:06)
[2022-05-03] MEDS ORDERED: SODIUM CHLORIDE 0.9% 250ML 250 ML ONE (14:08)
[2022-05-03] MEDS ORDERED: ALBUTEROL/IPRATROPIUM 3 ML NEB NEB PRN (16:00)
[2022-05-03] MEDS: TAMSULOSIN HCL 0.4 MG CAP PO SCH (16:49)
[2022-05-03] MEDS: ENOXAPARIN SOD INJ 40 MG/0.4 ML SYR SC SCH (16:49)
[2022-05-03] MEDS: DOXYCYCLINE HYCLATE TABLET 100 MG TAB PO SCH (16:49)
[2022-05-03] MEDS: ACETAMINOPHEN 325 MG TAB PO PRN (16:51)
[2022-05-03] MEDS: ALBUTEROL/IPRATROPIUM 3 ML NEB NEB SCH (19:40)
[2022-05-03] MEDS: INSULIN GLARGINE 100 UNITS/ML VIAL SQ SCH (22:07)
[2022-05-04] VITALS (8 sets, daily range): BP systolic 106–133; BP diastolic 53–68
[2022-05-04] MEDS: ALBUTEROL/IPRATROPIUM 3 ML NEB NEB SCH ×4 (02:15→20:25)
[2022-05-04] MEDS: LEVOTHYROXINE SODIUM 25 MCG TABLET PO SCH (05:19)
[2022-05-04 06:00] LABS: BASOPHILS # (AUTO) 0.1 (0.0-0.1); BASOPHILS % 0.5 % (0.0-1.0); EOSINOPHILS % 0.1 % (0.0-6.0); HEMATOCRIT 32.5 % (38.2-49.6); HEMOGLOBIN 9.8 g/dL (14.0-18.0); LYMPHOCYTES # (AUTO) 0.8 (1.0-3.2); LYMPHOCYTES % 4.6 % (18.0-39.1); MEAN CORPUSCULAR HGB CONC 30.2 g/dL (31-35); MEAN CORPUSCULAR VOLUME 96.2 fL (81-99); MONOCYTES # (AUTO) 0.7 (0.2-0.8); NEUTROPHILS # (AUTO) 15.2 (2.1-6.9); NEUTROPHILS % 90.2 % (38.7-80.0); PLATELET COUNT 154 x10e3/uL (140-360); RED BLOOD COUNT 3.38 x10e6/uL (4.3-5.7); RED CELL DISTRIBUTION WIDTH 14.4 % (11.7-14.4)
[2022-05-04 06:24] LABS: ALBUMIN 2.6 g/dL (3.5-5.0); ALBUMIN/GLOBULIN RATIO 0.7 (0.8-2.0); ANION GAP 21.5 mmol/L (8-16); CALCIUM 8.4 mg/dL (8.4-10.2); CHOL/HDL RATIO 6.7 (3.9-4.7); CREATININE, SERUM 1.07 mg/dL (0.72-1.25); MAGNESIUM 1.8 MG/DL (1.3-2.1); PHOSPHORUS 3.6 MG/DL (2.3-4.7); POTASSIUM 4.5 mmol/L (3.5-5.1)
[2022-05-04 06:27] LABS: THYROID STIMULATING HORMONE 1.203 uIU/mL (0.350-4.940)
[2022-05-04] MEDS: RANOLAZINE 500 MG TABSR PO SCH ×2 (08:15→22:11)
[2022-05-04] MEDS: LOSARTAN POTASSIUM 25 MG TAB PO SCH (09:00)
[2022-05-04] MEDS: METOPROLOL SUCCINATE 25 MG TAB XL PO SCH (09:00)
[2022-05-04] MEDS: ASPIRIN 81 MG CHEW TAB PO SCH (09:07)
[2022-05-04] MEDS: FINASTERIDE 5 MG TAB PO SCH (09:07)
[2022-05-04] MEDS: DOXYCYCLINE HYCLATE TABLET 100 MG TAB PO SCH ×2 (09:07→17:02)
[2022-05-04] MEDS: INSULIN LISPRO 100 UNIT/1 ML 3ML VIAL SQ SCH ×4 (09:12→22:24)
[2022-05-04] MEDS: EMPAGLIFLOZIN 10 MG TABLET PO SCH (09:48)
[2022-05-04] MEDS ORDERED: ONDANSETRON HCL 4 MG ORAL DISINTEGRATING TAB PO PRN (10:30)
[2022-05-04] MEDS: FUROSEMIDE INJ 10 MG/ML 4 ML VIAL IV SCH (13:09)
[2022-05-04] MEDS: ENOXAPARIN SOD INJ 40 MG/0.4 ML SYR SC SCH (17:02)
[2022-05-04] MEDS: TAMSULOSIN HCL 0.4 MG CAP PO SCH (17:04)
[2022-05-04] MEDS: INSULIN GLARGINE 100 UNITS/ML VIAL SQ SCH (22:24)
[2022-05-04] MEDS: BENZONATATE 100 MG CAP PO PRN (23:23)
[2022-05-05] VITALS (8 sets, daily range): BP systolic 107–132; BP diastolic 49–95
[2022-05-05] MEDS: ALBUTEROL/IPRATROPIUM 3 ML NEB NEB SCH ×4 (01:25→19:50)
[2022-05-05 04:59] LABS: BASOPHILS % 0.3 % (0.0-1.0); EOSINOPHILS # (AUTO) 0.2 (0.0-0.4); EOSINOPHILS % 1.3 % (0.0-6.0); HEMATOCRIT 30.4 % (38.2-49.6); HEMOGLOBIN 9.4 g/dL (14.0-18.0); LYMPHOCYTES # (AUTO) 1.1 (1.0-3.2); LYMPHOCYTES % 9.4 % (18.0-39.1); MEAN CORPUSCULAR HEMOGLOBIN 28.7 pg (28-32); MEAN CORPUSCULAR HGB CONC 30.9 g/dL (31-35); MONOCYTES # (AUTO) 0.7 (0.2-0.8); MONOCYTES % 5.8 % (4.4-11.3); NEUTROPHILS # (AUTO) 9.7 (2.1-6.9); NEUTROPHILS % 82.9 % (38.7-80.0); PLATELET COUNT 268 x10e3/uL (140-360); RED BLOOD COUNT 3.27 x10e6/uL (4.3-5.7); RED CELL DISTRIBUTION WIDTH 13.7 % (11.7-14.4)
[2022-05-05 05:25] LABS: ANION GAP 16.9 mmol/L (8-16); CALCIUM 8.4 mg/dL (8.4-10.2); CREATININE, SERUM 0.98 mg/dL (0.72-1.25); POTASSIUM 3.9 mmol/L (3.5-5.1)
[2022-05-05] MEDS: LEVOTHYROXINE SODIUM 25 MCG TABLET PO SCH (05:34)
[2022-05-05] MEDS: INSULIN LISPRO 100 UNIT/1 ML 3ML VIAL SQ SCH ×4 (07:30→21:00)
[2022-05-05] MEDS: ASPIRIN 81 MG CHEW TAB PO SCH (09:12)
[2022-05-05] MEDS: LOSARTAN POTASSIUM 25 MG TAB PO SCH (09:12)
[2022-05-05] MEDS: BENZONATATE 100 MG CAP PO PRN (09:12)
[2022-05-05] MEDS: FUROSEMIDE INJ 10 MG/ML 4 ML VIAL IV SCH (09:12)
[2022-05-05] MEDS: DOXYCYCLINE HYCLATE TABLET 100 MG TAB PO SCH (09:13)
[2022-05-05] MEDS: EMPAGLIFLOZIN 10 MG TABLET PO SCH (09:13)
[2022-05-05] MEDS: FINASTERIDE 5 MG TAB PO SCH (09:13)
[2022-05-05] MEDS: RANOLAZINE 500 MG TABSR PO SCH ×2 (09:13→20:15)
[2022-05-05] MEDS: METOPROLOL SUCCINATE 25 MG TAB XL PO SCH (09:14)
[2022-05-05] MEDS: ENOXAPARIN SOD INJ 40 MG/0.4 ML SYR SC SCH (17:01)
[2022-05-05] MEDS: ACETAMINOPHEN 325 MG TAB PO PRN (17:01)
[2022-05-05] MEDS: TAMSULOSIN HCL 0.4 MG CAP PO SCH (17:01)
[2022-05-05] MEDS: INSULIN GLARGINE 100 UNITS/ML VIAL SQ SCH (21:12)
[2022-05-06] VITALS (8 sets, daily range): BP systolic 103–140; BP diastolic 48–98
[2022-05-06] MEDS: ALBUTEROL/IPRATROPIUM 3 ML NEB NEB SCH ×4 (02:10→19:12)
[2022-05-06] MEDS: LEVOTHYROXINE SODIUM 25 MCG TABLET PO SCH (06:00)
[2022-05-06] MEDS: INSULIN LISPRO 100 UNIT/1 ML 3ML VIAL SQ SCH ×4 (07:30→21:41)
[2022-05-06] MEDS: FINASTERIDE 5 MG TAB PO SCH (11:05)
[2022-05-06] MEDS: FUROSEMIDE INJ 10 MG/ML 4 ML VIAL IV SCH (11:05)
[2022-05-06] MEDS: METOPROLOL SUCCINATE 25 MG TAB XL PO SCH (11:06)
[2022-05-06] MEDS: RANOLAZINE 500 MG TABSR PO SCH ×2 (11:06→20:15)
[2022-05-06] MEDS: ASPIRIN 81 MG CHEW TAB PO SCH (11:06)
[2022-05-06] MEDS: EMPAGLIFLOZIN 10 MG TABLET PO SCH (11:06)
[2022-05-06] MEDS: ENOXAPARIN SOD INJ 40 MG/0.4 ML SYR SC SCH (16:35)
[2022-05-06] MEDS: TAMSULOSIN HCL 0.4 MG CAP PO SCH (16:35)
[2022-05-06] MEDS: ACETAMINOPHEN 325 MG TAB PO PRN (16:39)
[2022-05-06] MEDS: INSULIN GLARGINE 100 UNITS/ML VIAL SQ SCH (21:39)
[2022-05-06 22:14] LABS: CALCIUM 8.2 mg/dL (8.4-10.2); CREATININE, SERUM 1.19 mg/dL (0.72-1.25)
[2022-05-07] VITALS (8 sets, daily range): BP systolic 108–126; BP diastolic 50–71
[2022-05-07] MEDS: ALBUTEROL/IPRATROPIUM 3 ML NEB NEB SCH ×4 (00:19→19:00)
[2022-05-07] MEDS: LEVOTHYROXINE SODIUM 25 MCG TABLET PO SCH (05:05)
[2022-05-07 06:10] LABS: BASOPHILS % 0.4 % (0.0-1.0); EOSINOPHILS # (AUTO) 0.3 (0.0-0.4); EOSINOPHILS % 2.8 % (0.0-6.0); HEMATOCRIT 31.7 % (38.2-49.6); HEMOGLOBIN 9.8 g/dL (14.0-18.0); LYMPHOCYTES % 10.7 % (18.0-39.1); MEAN CORPUSCULAR HEMOGLOBIN 28.6 pg (28-32); MEAN CORPUSCULAR HGB CONC 30.9 g/dL (31-35); MEAN CORPUSCULAR VOLUME 92.4 fL (81-99); MONOCYTES # (AUTO) 0.6 (0.2-0.8); MONOCYTES % 6.7 % (4.4-11.3); NEUTROPHILS # (AUTO) 7.6 (2.1-6.9); PLATELET COUNT 283 x10e3/uL (140-360); RED BLOOD COUNT 3.43 x10e6/uL (4.3-5.7); RED CELL DISTRIBUTION WIDTH 13.6 % (11.7-14.4)
[2022-05-07 06:29] LABS: ANION GAP 15.9 mmol/L (8-16); CALCIUM 8.5 mg/dL (8.4-10.2); CREATININE, SERUM 0.9 mg/dL (0.72-1.25); POTASSIUM 3.9 mmol/L (3.5-5.1)
[2022-05-07] MEDS: INSULIN LISPRO 100 UNIT/1 ML 3ML VIAL SQ SCH ×4 (07:30→20:46)
[2022-05-07] MEDS: ASPIRIN 81 MG CHEW TAB PO SCH (08:37)
[2022-05-07] MEDS: EMPAGLIFLOZIN 10 MG TABLET PO SCH (08:37)
[2022-05-07] MEDS: FINASTERIDE 5 MG TAB PO SCH (08:37)
[2022-05-07] MEDS: RANOLAZINE 500 MG TABSR PO SCH ×2 (08:38→20:15)
[2022-05-07] MEDS: METOPROLOL SUCCINATE 25 MG TAB XL PO SCH (08:42)
[2022-05-07] MEDS: FUROSEMIDE INJ 10 MG/ML 4 ML VIAL IV SCH (10:35)
[2022-05-07] MEDS: TAMSULOSIN HCL 0.4 MG CAP PO SCH (16:27)
[2022-05-07] MEDS: ENOXAPARIN SOD INJ 40 MG/0.4 ML SYR SC SCH (16:27)
[2022-05-07] MEDS: INSULIN GLARGINE 100 UNITS/ML VIAL SQ SCH (20:52)
[2022-05-08] VITALS (19 sets, daily range): BP systolic 106–137; BP diastolic 45–94
[2022-05-08] MEDS: ALBUTEROL/IPRATROPIUM 3 ML NEB NEB SCH ×4 (00:10→20:30)
[2022-05-08] MEDS: LEVOTHYROXINE SODIUM 25 MCG TABLET PO SCH (05:03)
[2022-05-08] MEDS: EMPAGLIFLOZIN 10 MG TABLET PO SCH (07:25)
[2022-05-08] MEDS: FINASTERIDE 5 MG TAB PO SCH (07:25)
[2022-05-08] MEDS: ASPIRIN 81 MG CHEW TAB PO SCH (07:25)
[2022-05-08] MEDS: RANOLAZINE 500 MG TABSR PO SCH ×2 (07:25→20:58)
[2022-05-08] MEDS: METOPROLOL SUCCINATE 25 MG TAB XL PO SCH (07:26)
[2022-05-08] MEDS: INSULIN LISPRO 100 UNIT/1 ML 3ML VIAL SQ SCH ×4 (07:30→21:08)
[2022-05-08] MEDS: FUROSEMIDE INJ 10 MG/ML 4 ML VIAL IV SCH (08:35)
[2022-05-08] MEDS ORDERED: MIDAZOLAM HCL 2 MG/2 ML VIAL ONE (10:28)
[2022-05-08] MEDS ORDERED: HEPARIN SOD (PORCINE) 1000 UNIT/ML 30ML ONE (10:28)
[2022-05-08] MEDS ORDERED: FENTANYL CITRATE/PF 100MCG/2 ML INJ ONE (10:28)
[2022-05-08] MEDS ORDERED: NITROGLYCERIN/D5W 200 MCG/ML 250 ML ONE (10:29)
[2022-05-08] MEDS ORDERED: LIDOCAINE HCL 1% 30ML-PF VIAL ONE (10:29)
[2022-05-08] MEDS ORDERED: HEPARIN SOD/SOD CHLORIDE 2,000 ML ONE (10:29)
[2022-05-08] MEDS ORDERED: IOPAMIDOL 370 MG/ML 100 ML INFUS..BTL INJ ONE ×2 (10:29→16:24)
[2022-05-08] MEDS ORDERED: SODIUM CHLORIDE 0.9% 1000ML 1,000 ML IV SCH (10:30)
[2022-05-08] MEDS ORDERED: SODIUM CHLORIDE 0.9% 1000ML 1,000 ML ONE (10:32)
[2022-05-08] MEDS ORDERED: VERAPAMIL HCL 2.5 MG/ML 2 ML VIAL ONE (10:32)
[2022-05-08] MEDS ORDERED: METHYLPREDNISOLONE SOD SUCC 125 MG/2ML VIAL ONE (11:23)
[2022-05-08] MEDS ORDERED: DIPHENHYDRAMINE HCL INJ 50 MG/ML VIAL ONE (11:23)
[2022-05-08] MEDS: TAMSULOSIN HCL 0.4 MG CAP PO SCH (16:26)
[2022-05-08] MEDS: ENOXAPARIN SOD INJ 40 MG/0.4 ML SYR SC SCH (16:26)
[2022-05-08] MEDS: BENZONATATE 100 MG CAP PO PRN (18:44)
[2022-05-08] MEDS: INSULIN GLARGINE 100 UNITS/ML VIAL SQ SCH (21:08)
[2022-05-09] VITALS (7 sets, daily range): BP systolic 92–133; BP diastolic 47–56
[2022-05-09] MEDS: ALBUTEROL/IPRATROPIUM 3 ML NEB NEB SCH ×4 (02:40→21:00)
[2022-05-09 05:35] LABS: BASOPHILS % 0.2 % (0.0-1.0); HEMATOCRIT 31.9 % (38.2-49.6); HEMOGLOBIN 10.6 g/dL (14.0-18.0); LYMPHOCYTES # (AUTO) 0.7 (1.0-3.2); LYMPHOCYTES % 7.7 % (18.0-39.1); MEAN CORPUSCULAR HGB CONC 33.2 g/dL (31-35); MEAN CORPUSCULAR VOLUME 87.4 fL (81-99); MONOCYTES # (AUTO) 0.2 (0.2-0.8); MONOCYTES % 1.9 % (4.4-11.3); NEUTROPHILS # (AUTO) 8.4 (2.1-6.9); NEUTROPHILS % 89.2 % (38.7-80.0); PLATELET COUNT 327 x10e3/uL (140-360); RED BLOOD COUNT 3.65 x10e6/uL (4.3-5.7); RED CELL DISTRIBUTION WIDTH 13.8 % (11.7-14.4)
[2022-05-09 06:00] LABS: ANION GAP 21.8 mmol/L (8-16); CALCIUM 8.8 mg/dL (8.4-10.2); CREATININE, SERUM 1.04 mg/dL (0.72-1.25); POTASSIUM 3.8 mmol/L (3.5-5.1)
[2022-05-09] MEDS: LEVOTHYROXINE SODIUM 25 MCG TABLET PO SCH (06:38)
[2022-05-09] MEDS: INSULIN LISPRO 100 UNIT/1 ML 3ML VIAL SQ SCH ×4 (07:30→22:04)
[2022-05-09] MEDS: METOPROLOL SUCCINATE 25 MG TAB XL PO SCH (08:44)
[2022-05-09] MEDS: EMPAGLIFLOZIN 10 MG TABLET PO SCH (08:44)
[2022-05-09] MEDS: RANOLAZINE 500 MG TABSR PO SCH ×2 (08:45→21:54)
[2022-05-09] MEDS: FINASTERIDE 5 MG TAB PO SCH (08:45)
[2022-05-09] MEDS: ASPIRIN 81 MG CHEW TAB PO SCH (08:45)
[2022-05-09] MEDS: FUROSEMIDE 40 MG TAB PO SCH (12:52)
[2022-05-09] MEDS: ENOXAPARIN SOD INJ 40 MG/0.4 ML SYR SC SCH (16:59)
[2022-05-09] MEDS: TAMSULOSIN HCL 0.4 MG CAP PO SCH (16:59)
[2022-05-09] MEDS: INSULIN GLARGINE 100 UNITS/ML VIAL SQ SCH (22:04)
[2022-05-10] VITALS: BP 121/52
[2022-05-10] MEDS: ALBUTEROL/IPRATROPIUM 3 ML NEB NEB SCH ×3 (03:00→12:32)
[2022-05-10 05:52] VITALS: BP 112/54
[2022-05-10] MEDS: LEVOTHYROXINE SODIUM 25 MCG TABLET PO SCH (06:08)
[2022-05-10 06:23] LABS: BASOPHILS % 0.2 % (0.0-1.0); EOSINOPHILS # (AUTO) 0.1 (0.0-0.4); HEMOGLOBIN 9.7 g/dL (14.0-18.0); LYMPHOCYTES # (AUTO) 1.3 (1.0-3.2); LYMPHOCYTES % 12.3 % (18.0-39.1); MEAN CORPUSCULAR HEMOGLOBIN 28.3 pg (28-32); MEAN CORPUSCULAR HGB CONC 30.3 g/dL (31-35); MEAN CORPUSCULAR VOLUME 93.3 fL (81-99); MONOCYTES # (AUTO) 0.7 (0.2-0.8); MONOCYTES % 7.1 % (4.4-11.3); NEUTROPHILS # (AUTO) 8.2 (2.1-6.9); NEUTROPHILS % 78.4 % (38.7-80.0); PLATELET COUNT 345 x10e3/uL (140-360); RED BLOOD COUNT 3.43 x10e6/uL (4.3-5.7); RED CELL DISTRIBUTION WIDTH 14.2 % (11.7-14.4)
[2022-05-10 06:54] LABS: ANION GAP 16.5 mmol/L (8-16); CALCIUM 8.6 mg/dL (8.4-10.2); CREATININE, SERUM 0.93 mg/dL (0.72-1.25); POTASSIUM 3.5 mmol/L (3.5-5.1)
[2022-05-10] MEDS: INSULIN LISPRO 100 UNIT/1 ML 3ML VIAL SQ SCH (07:30)
[2022-05-10 08:11] VITALS: BP 109/51
[2022-05-10 08:46] VITALS: BP 109/51
[2022-05-10] MEDS: ASPIRIN 81 MG CHEW TAB PO SCH (09:12)
[2022-05-10] MEDS: RANOLAZINE 500 MG TABSR PO SCH (09:12)
[2022-05-10] MEDS: FINASTERIDE 5 MG TAB PO SCH (09:12)
[2022-05-10] MEDS: METOPROLOL SUCCINATE 25 MG TAB XL PO SCH (09:13)
[2022-05-10] MEDS: FUROSEMIDE 40 MG TAB PO SCH (09:13)
[2022-05-10] MEDS: EMPAGLIFLOZIN 10 MG TABLET PO SCH (09:14)
[2022-05-10] MEDS ORDERED: IOPAMIDOL 370 MG/ML 100 ML INFUS..BTL INJ ONE (11:03)
[2022-05-10 11:49] VITALS: BP 106/46
== END 2022-05-10 13:02 | disposition home or self-care (01) | DRG 280 ==
LOC: ER 11:20 → ERHOLD 13:05 → MED/SURG3 16:13
PROVIDERS: ADMIT Internal Medicine; ATTEND Internal Medicine
PROC: 4A023N7 Measurement of Cardiac Sampling and Pressure, Left Heart, Percutaneous Approach (ICD-10-PCS; principal; 2022-05-08)
PROC: B31H1ZZ Fluoroscopy of Right Upper Extremity Arteries using Low Osmolar Contrast (ICD-10-PCS; 2022-05-08)
PROC: B2151ZZ Fluoroscopy of Left Heart using Low Osmolar Contrast (ICD-10-PCS; 2022-05-08)
PROC: B2111ZZ Fluoroscopy of Multiple Coronary Arteries using Low Osmolar Contrast (ICD-10-PCS; 2022-05-08)
DX: I11.0 Hypertensive heart disease with heart failure (principal); I21.A1 Myocardial infarction type 2; G92.9 Unspecified toxic encephalopathy; I50.23 Acute on chronic systolic (congestive) heart failure; J18.9 Pneumonia, unspecified organism; I31.39 Other pericardial effusion (noninflammatory); J90 Pleural effusion, not elsewhere classified; J95.88 Other intraoperative complications of respiratory system, not elsewhere classified; E87.1 Hypo-osmolality and hyponatremia; I65.21 Occlusion and stenosis of right carotid artery; I25.84 Coronary atherosclerosis due to calcified coronary lesion; R91.8 Other nonspecific abnormal finding of lung field; I49.5 Sick sinus syndrome; R41.82 Altered mental status, unspecified; E11.9 Type 2 diabetes mellitus without complications; E78.5 Hyperlipidemia, unspecified; F03.90 Unspecified dementia, unspecified severity, without behavioral disturbance, psychotic disturbance, mood disturbance, and anxiety; I48.0 Paroxysmal atrial fibrillation; R09.02 Hypoxemia; N40.1 Benign prostatic hyperplasia with lower urinary tract symptoms; R33.8 Other retention of urine; I70.8 Atherosclerosis of other arteries; R53.81 Other malaise; D63.8 Anemia in other chronic diseases classified elsewhere; I25.10 Atherosclerotic heart disease of native coronary artery without angina pectoris; R82.81 Pyuria; R81 Glycosuria; E83.51 Hypocalcemia; R80.9 Proteinuria, unspecified; Z90.89 Acquired absence of other organs; Z98.49 Cataract extraction status, unspecified eye; Z95.5 Presence of coronary angioplasty implant and graft; Z88.8 Allergy status to other drugs, medicaments and biological substances; Z79.82 Long term (current) use of aspirin; Z79.4 Long term (current) use of insulin; Z79.02 Long term (current) use of antithrombotics/antiplatelets; Z79.2 Long term (current) use of antibiotics; Z79.84 Long term (current) use of oral hypoglycemic drugs; Z79.899 Other long term (current) drug therapy; Z95.3 Presence of xenogenic heart valve; Z95.810 Presence of automatic (implantable) cardiac defibrillator; Z91.041 Radiographic dye allergy status; Z87.440 Personal history of urinary (tract) infections
CPT/HCPCS: 36415; 51700; 70450; 71045; 71250; 74176; 74230; 80048; 80053; 80061; 81001; 82140; 82550; 82553; 82948; 83036; 83605; 83735; 83880; 84100; 84443; 84484; 85025; 85610; 85730; 87040; 87071; 87086; 87205; 93005; 93306; 93458; 93880; 94760; 94799; 96372; 97139; 99152; 99153; 99252; 99285; C1769; C1887; J0456; J0696; J1200; J1644; J1650; J1815; J1817; J1940; J2001; J2250; J2543; J2930; J3010; J7030; J7050; J7799; Q9967